=== PATIENT | male | born 1960 | race Caucasian/White ===

== ENCOUNTER → 2021-07-11 13:39 | Outpatient (CLI) | payer OTHER, SELFPAY | PROVIDERS: Visit Provider Internal Medicine Gastroenterology | DX: Z01.812 Encounter for preprocedural laboratory examination (principal); Z20.822 Contact with and (suspected) exposure to COVID-19; U07.1 COVID-19 | CPT/HCPCS: C9803; U0003; U0005 ==

== ENCOUNTER 2021-09-25 08:42 | Day surgery (SDC) | payer OTHER, SELFPAY ==
[2021-09-22 09:58] VITALS: BMI 29.5
[2021-09-25 08:57] VITALS: BP 153/76; PULSE 75; RESP 20; TEMP 36.6; O2SAT 97
--- NOTE | 2021-09-25 09:05 | HMH.ANESCL ---
[facility] Anesthesia Checklist - Patient Identification Patient Identification: Arm Band - Structural Data Admitted From: Home Planned Operative Procedure/s: Colonoscopy Consent for Planned Operative Procedure(s) Verified: Yes - NPO Status Verified Time NPO: 00:00 - Airway Assessment C-Spine Mobility Assessed: Yes TMJ Mobility Assessed: Yes Dentition: Good Dentition - Neurological Assessment Level of Consciousness: Awake Hx Seizures: No Numbness or tingling in extremities: No - Anesthesia Plan Anesthesia Risk discussed: Yes Anesthesia Plan: Verified ASA Class: I Anesthesia Type: MAC [facility] History I have reviewed the patient's past medical history: Yes Medical History: Denies:: Cancer, Diabetes Mellitus Type 1, Diabetes Mellitus Type 2, Internal Pacemaker, MRSA, Seizures *Have you ever received a pneumonia vaccine?: No *Have you received a flu vaccine this season?: No Anesthesia experience/problems:: None Other Surgeries: No: Pacemaker Amputation: No Fractures: No - *Social History Last grade of school completed: Advanced degree Smoking Status: Never smoker Alcohol Intake: never Substance Use Type: denies use *Occupational Status:: retired Housing: house Household Members: spouse *Travel in the last 8 weeks: Inside the [facility] Family Hx:: No significant family history
[2021-09-25 09:12] VITALS: O2SAT 97
--- NOTE | 2021-09-25 09:49 | P.PCN_ITS ---
- Procedure: Date: 09/25/21 Patient Date of :: 1960 Procedure Performed:: Colonoscopy Indications:: History of colon polyps Performing Provider:: Kelton Echavarria MD Referring Provider:: . Sedation:: Monitored anesthesia care Procedure:: After informed consent was obtained the patient was taken to the endoscopy suite. Sedation ensued after the patient was transferred to the left lateral decubitus position. Pulse, blood pressure, and oxygen saturation were monitored throughout the procedure. Digital rectal exam revealed no significant abnor mality. The colonoscope was placed in position. The entire colon was evaluated. The colonoscope was carefully removed and the patient was transferred to recovery in stable condition. Please see findings and specimens below for detail. Findings:: Bowel preparation relatively fair Fairly significant lack of relaxation and spasticity (particularly sigmoid colon) Mild scattered sigmoid diverticulosis Specimens:: None Recommendations:: Repeat colonoscopy in 3-5 years secondary to history of polyps, lack of rela xation, and spasticity. Complications:: No immediate Estimated blood obtained (mL): 0
[2021-09-25 09:50] VITALS: BP 99/70; PULSE 78; RESP 18; TEMP 36.1; O2SAT 91
[2021-09-25 10:00] VITALS: BP 104/71; PULSE 72; RESP 18; O2SAT 91
[2021-09-25 10:10] VITALS: BP 108/78; PULSE 72; RESP 18; O2SAT 92
[2021-09-25 10:20] VITALS: BP 106/77; PULSE 71; RESP 18; O2SAT 94
== END 2021-09-25 10:20 | disposition home or self-care (01) ==
LOC: OUTP 08:44
PROVIDERS: PCP Family Medicine; Visit Provider Surgery
PROC: 0DJD8ZZ Inspection of Lower Intestinal Tract, Via Natural or Artificial Opening Endoscopic (ICD-10-PCS; CPT 45378; principal; 2021-09-25 09:30)
DX: Z12.11 Encounter for screening for malignant neoplasm of colon (principal); K58.9 Irritable bowel syndrome, unspecified; K57.32 Diverticulitis of large intestine without perforation or abscess without bleeding; Z86.010 Personal history of colon polyps
CPT/HCPCS: 45378; J2704